=== PATIENT | female | born 1965 | race Caucasian/White ===

== ENCOUNTER 2017-01-09 18:19 | Emergency (ER) | payer OTHER ==
[~2017-01-09] VITALS: Ht 162.6 cm; Wt 70.0 kg
[2017-01-09 18:20] VITALS: BP 139/92; PULSE 93; RESP 16; TEMP 99.2; O2SAT 96
--- NOTE | 2017-01-09 19:02 | PD ---
HPI Chief Complaint: Pain: Acute or Chronic Time Seen by Provider: 18:57 (Yeimy Miranda) Time Seen by Provider: 22:12 (Lidya Garcia) Travel History International Travel<30 days: No Contact w/Intl Traveler<30days: No Traveled to known affect area: No (Yeimy Miranda) International Travel<30 days: No Contact w/Intl Traveler<30days: No (Lidya Garcia) History of Present Illness HPI Patient is a 51-year-old female presenting to emergency department for evaluation of right lower leg pain. Patient states the pain started 3 weeks ago , at that time it was just a dull tingling sensation. Over the last few weeks pain is increased, specifically the pain has gotten worse over the last 24-48 hours. Patient states it feels like it's throbbing and grabbing. She rates her pain a 7 out of 10, she's been taking Tylenol with no relief of her symptoms. Patient denies any chest pain, shortness of breath, nausea, vomiting. She states she feels as if her leg is swollen and tight. Patient has been to another emergency department as well as her primary care provider's office to have this evaluated. Patient had an ultrasound performed in the emergency department 2 weeks ago, she states that she was never told if it was negative or not. (Yeimy Miranda) HPI 51-year-old female presents to the emergency department for evaluation of right leg calf cramping for 3 weeks. Patient states that about 4 weeks ago she was having right sciatic pain and was seen by her PCP and given an injection which improved her sciatic pain. States that 3 days after this she began to have pain in the right calf that was a dull aching pain. States that the pain has progressed over the past 3 weeks and she describes it as a cramping pain. States that the pain is brought on with walking and alleviated with rest. States that she is also having some numbness and tingling in her feet bilaterally. States that her PCP has ordered an outpatient MRI to evaluate her lumbar spine, she is getting this done tomorrow. States she has an appointment with her PCP doctor Wisam later this week to follow up on these results. She denies any fever, chills, nausea, vomiting, weakness, swelling, chest pain, shortness of breath. Denies any medical conditions. Denies smoking history. No other complaints. (Lidya Garcia) [facility] Past Medical History Asthma: Yes Blood Disorders: No Cancer: No Cardiovascular Problems: No Diabetes: No Diminished Hearing: No Endocrine: No Genitourinary: No Immune Disorder: No Musculoskeletal: No Neurologic: Yes (VERTIGO) Reproductive: No Respiratory: Yes Migraines: Yes Influenza Vaccination: No ?: Unknown LMP: 11/29/16 : 3 Para: 2 (Yeimy Miranda) Medical History: Denies Significant Hx (Lidya Garcia) Past Surgical History Other Surgery: No (SURGERY TO LEFT AXILLA) (Yeimy Miranda) Social History Alcohol Use: No Tobacco Use: No Substance Use: No (Yeimy Miranda) Alcohol Use: No Tobacco Use: No Substance Use: No (Lidya Garcia) Allergies-Medications (Allergen,Severity, Reaction): Coded Allergies: Ibuprofen (Verified Allergy, Severe, HIVES/RASH, 01/09/17) Aspirin (Verified Allergy, Mild, RED, 01/09/17) Codeine (Verified Allergy, Mild, HIVES, 01/09/17) Reported Meds & Prescriptions Reported Meds & Active Scripts Active No Active Prescriptions or Reported Medications (Lidya Garcia) Review of Systems Except as stated in HPI: all other systems reviewed are Neg Musculoskeletal: Positive: Myalgias, Edema, Pain (Yeimy Miranda) Except as stated in HPI: all other systems reviewed are Neg (Lidya Garcia) Physical Exam Narrative GENERAL: Well-developed, well-nourished, alert female. Resting comfortably in no acute distress. SKIN: Warm and dry. HEAD: Atraumatic. Normocephalic. EYES: Pupils equal and round. No scleral icterus. No injection or drainage. ENT: No nasal bleeding or discharge. Mucous membranes pink and moist. NECK: Trachea midline. No JVD. CARDIOVASCULAR: Regular rate and rhythm. RESPIRATORY: No accessory muscle use. Clear to auscultation. Breath sounds equal bilaterally. GASTROINTESTINAL: Abdomen soft, non-tender, nondistended. Hepatic and splenic margins not palpable. MUSCULOSKELETAL: Extremities without clubbing, cyanosis, mild edema on the right.. No obvious deformities. Positive Homans sign on the right, patient is neurovascularly intact. NEUROLOGICAL: Awake and alert. No obvious cranial nerve deficits. Motor grossly within normal limits. Five out of 5 muscle strength in the arms and legs. Normal speech. PSYCHIATRIC: Appropriate mood and affect; insight and judgment normal. (Yeimy Miranda) Narrative GENERAL: Well-nourished and well-developed pleasant female patient in no acute distress who is nontoxic appearing. SKIN: Warm and dry. HEAD: Normocephalic and atraumatic. EYES: No injection, drainage, or hyphema noted. PERRLA. EOMI. ENT: No nasal drainage noted. Oropharynx is clear. NECK: Supple and the trachea is midline. CARDIOVASCULAR: Regular rate and rhythm. RESPIRATORY: Breath sounds are equal bilaterally with no accessory muscle use, wheezing, rhonchi, or crackles. MUSCULOSKELETAL: Mild tenderness to palpation of right calf. No obvious deformities, swelling, cyanosis, or ecchymosis is present throughout the upper and lower extremities. Patient has full range of motion without any signs of neurovascular compromise. DP pulses 2+ bilaterally. Capillary refill is within normal limits bilaterally. Lower extremities are warm to touch. NEUROLOGICAL: Awake, alert, and oriented. Normal speech and gait. Cranial nerves are grossly intact. (Lidya Garcia) Data Data Last Documented VS Vital Signs Date Time Temp Pulse Resp B/P Pulse Ox O2 Delivery O2 Flow Rate FiO2 01/09/17 21:43 80 16 104/65 96 Room Air 01/09/17 18:20 99.2 (Lidya Garcia) Orders Comprehensive Metabolic Panel (01/09/17 18:55) Magnesium (Mg) (01/09/17 18:55) Complete Blood Count With Diff (01/09/17 18:55) Act Partial Throm Time (Ptt) (01/09/17 18:55) Prothrombin Time / Inr (Pt) (01/09/17 18:55) Us Leg Venous Doppler (01/09/17 ) (Lidya Garcia) Labs Laboratory Tests Test 01/09/17 19:00 White Blood Count 6.8 TH/MM3 Red Blood Count 4.54 MIL/MM3 Hemoglobin 12.9 GM/DL Hematocrit 38.2 % Mean Corpuscular Volume 84.2 FL Mean Corpuscular Hemoglobin 28.4 PG Mean Corpuscular Hemoglobin 33.7 % Concent Red Cell Distribution Width 13.7 % Platelet Count 246 TH/MM3 Mean Platelet Volume 8.8 FL Neutrophils (%) (Auto) 70.8 % Lymphocytes (%) (Auto) 17.9 % Monocytes (%) (Auto) 7.9 % Eosinophils (%) (Auto) 2.4 % Basophils (%) (Auto) 1.0 % Neutrophils # (Auto) 4.8 TH/MM3 Lymphocytes # (Auto) 1.2 TH/MM3 Monocytes # (Auto) 0.5 TH/MM3 Eosinophils # (Auto) 0.2 TH/MM3 Basophils # (Auto) 0.1 TH/MM3 CBC Comment DIFF FINAL Differential Comment Prothrombin Time 10.9 SEC Prothromb Time International 1.0 RATIO Ratio Activated Partial 26.3 SEC Thromboplast Time Sodium Level 141 MEQ/L Potassium Level 3.9 MEQ/L Chloride Level 105 MEQ/L Carbon Dioxide Level 29.0 MEQ/L Anion Gap 7 MEQ/L Blood Urea Nitrogen 13 MG/DL Creatinine 0.71 MG/DL Estimat Glomerular Filtration 87 ML/MIN Rate Random Glucose 104 MG/DL Calcium Level 8.3 MG/DL Magnesium Level 2.1 MG/DL Total Bilirubin 0.2 MG/DL Aspartate Amino Transf 14 U/L (AST/SGOT) Alanine Aminotransferase 23 U/L (ALT/SGPT) Alkaline Phosphatase 90 U/L Total Protein 7.6 GM/DL Albumin 3.7 GM/DL (Lidya Garcia) [facility] Medical Decision Making Medical Screen Exam Complete: Yes Emergency Medical Condition: Yes Interpretation(s) Vital Signs Date Time Temp Pulse Resp B/P Pulse Ox O2 Delivery O2 Flow Rate FiO2 01/09/17 18:20 99.2 93 16 139/92 96 Differential Diagnosis Thrombophlebitis versus DVT versus muscle spasm versus muscle strain versus other Narrative Course Patient is a 51 year female presenting to the emergency department for evaluation of 3-4 weeks of right lower leg pain that has gotten worse over the last 3 days. Patient's vital signs are stable, she is resting comfortably, spouse at bedside. Ultrasound was negative for DVT. CBC is unremarkable, coags are unremarkable. Chemistry is pending. Care of patient transferred to Geoffrey ALAS at the end of my shift. (Yeimy Miranda) Medical Screen Exam Complete: Yes Emergency Medical Condition: Yes Differential Diagnosis Intermittent claudication versus radiculopathy (Lidya Garcia) Diagnosis Primary Impression: Right leg claudication Referrals: Primary Care Physician 3 days Patient Instructions: General Instructions, Leg Pain (ED) Additional Instructions: Get MARISOL testing done as an outpatient this week. Follow-up with your PCP Dr. Joel within the next week. Return to the ED for any acute worsening of symptoms. Med/Other Pt SpecificInfo: No Change to Meds (Lidya Garcia) Scripts No Active Prescriptions or Reported Meds Disposition: DISCHARGE HOME Condition: Stable Yeimy Miranda Jan 09, 2017 19:02 Lidya Garcia Jan 09, 2017 22:16 Differential Comment Prothrombin Time 10.9 SEC Prothromb Time International 1.0 RATIO Ratio Activated Partial 26.3 SEC Thromboplast Time (Yeimy Miranda) MDM Medical Decision Making Medical Screen Exam Complete: Yes Emergency Medical Condition: Yes Interpretation(s) Vital Signs Date Time Temp Pulse Resp B/P Pulse Ox O2 Delivery O2 Flow Rate FiO2 01/09/17 18:20 99.2 93 16 139/92 96 Differential Diagnosis Thrombophlebitis versus DVT versus muscle spasm versus muscle strain versus other Narrative Course Patient is a 51 year female presenting to the emergency department for evaluation of 3-4 weeks of right lower leg pain that has gotten worse over the last 3 days. Patient's vital signs are stable, she is resting comfortably, spouse at bedside. Ultrasound was negative for DVT. CBC is unremarkable, coags are unremarkable. Chemistry is pending. Care of patient transferred to Geoffrey ALAS at the end of my shift. (Yeimy Miranda) Medical Screen Exam Complete: Yes Emergency Medical Condition: Yes Differential Diagnosis Intermittent claudication versus radiculopathy (Lidya Garcia) Diagnosis Primary Impression: Right leg claudication Referrals: Primary Care Physician 3 days Patient Instructions: General Instructions, Leg Pain (ED) Additional Instructions: Get MARISOL testing done as an outpatient this week. Follow-up with your PCP Dr. Joel within the next week. Return to the ED for any acute worsening of symptoms. Med/Other Pt SpecificInfo: No Change to Meds (Lidya Garcia) Scripts No Active Prescriptions or Reported Meds Disposition: DISCHARGE HOME Condition: Stable Yeimy Miranda Jan 09, 2017 19:02 Lidya Garcia Jan 09, 2017 22:16
[2017-01-09 19:21] LABS: AUTOMATED NEUTROPHIL # 4.8 TH/MM3 (1.8-7.7); BASOPHIL # 0.1 TH/MM3 (0-0.2); EOSINOPHIL # 0.2 TH/MM3 (0-0.4); EOSINOPHIL % 2.4 % (0.0-4.0); HEMATOCRIT 38.2 % (35.0-46.0); HEMO FLAGS DIFF FINAL; LYMPH % 17.9 % (9.0-44.0); LYMPHOCYTE # 1.2 TH/MM3 (1.0-4.8); MEAN CELL VOLUME 84.2 FL (80.0-100.0); MEAN CORPUSCULAR HEMOGLOBIN 28.4 PG (27.0-34.0); MEAN CORPUSCULAR HGB CONC 33.7 % (32.0-36.0); MONO % 7.9 % (0.0-8.0); NEUT % 70.8 % (16.0-70.0); PLATELET COUNT 246 TH/MM3 (150-450); RED BLOOD COUNT 4.54 MIL/MM3 (4.00-5.30); RED CELL DISTRIBUTION WIDTH 13.7 % (11.6-17.2); WHITE BLOOD COUNT 6.8 TH/MM3 (4.0-11.0)
[2017-01-09 19:44] LABS: APTT (PATIENT) 26.3 SEC (24.3-30.1); PROTHROMBIN TIME - PATIENT 10.9 SEC (9.8-11.6)
--- NOTE | 2017-01-09 20:19 | RADRPT ---
EXAM DATE/TIME: 01/09/2017 19:50 [place] COMPARISON: No previous studies available for comparison. INDICATIONS : Right leg pain. MEDICAL HISTORY : Vertigo. Migraine. Ashtma. Right leg pain for one week. SURGICAL HISTORY : Breast surgery. Surgery to left axilla. ENCOUNTER: Initial ACUITY: 1 week PAIN SCORE: 6/10 LOCATION: Right leg. TECHNIQUE: Venous ultrasound of the leg was performed from the inguinal ligament to the proximal calf. Real-ning e, color Doppler and spectral tracing, compression and augmentation techniques were used. FINDINGS: There is normal compressibility of the deep venous system from the inguinal region to the proximal ca lf. No echogenic clot is seen in the lumen of the common femoral, femoral, popliteal, and posterior tibial veins. There is a normal response of the venous system to proximal and distal augmentation an d respiration. CONCLUSION: No DVT right lower extremity. Paulo Ireland MD on January 09, 2017 at 20:17 Board Certified Radiologist. This report was verified electronically.
[2017-01-09 21:31] LABS: ALT (GPT) 23 U/L (10-53); ANION GAP 7 MEQ/L (5-15); AST (GOT) 14 U/L (15-37); BLOOD UREA NITROGEN 13 MG/DL (7-18); CHLORIDE 105 MEQ/L (98-107); GLOMERULAR FILTRATION RATE 87 ML/MIN (>89); MAGNESIUM 2.1 MG/DL (1.5-2.5); POTASSIUM 3.9 MEQ/L (3.5-5.1); SODIUM (NA) 141 MEQ/L (136-145)
[2017-01-09 21:33] LABS: ALKALINE PHOSPHATASE 90 U/L (45-117); TOTAL BILIRUBIN ADULT 0.2 MG/DL (0.2-1.0)
[2017-01-09 21:43] VITALS: BP 104/65; PULSE 80; RESP 16; O2SAT 96
--- NOTE | 2017-01-09 22:40 | PD ---
Physical Exam Time Seen by Provider: 22:38 Narrative 51-year-old female presents to the emergency department for evaluation of right leg calf cramping for 3 weeks. Patient seen by provider in triage where initial workup was begun, please see her documentation. Patient states that about 4 weeks ago she was having right sciatic pain and was seen by her PCP and given an injection which improved her sciatic pain. States that 3 days after this she began to have pain in the right calf that was a dull aching pain. States that the pain has progressed over the past 3 weeks and she describes it as a cramping pain. States that the pain is brought on with walking and alleviated with rest. States that she is also having some numbness and tingling in her feet bilaterally. States that her PCP has ordered an outpatient MRI to evaluate her lumbar spine, she is getting this done tomorrow. States she has an appointment with her PCP doctor Wisam later this week to follow up on these results. She denies any fever, chills, nausea, vomiting, weakness, swelling, chest pain, shortness of breath. Denies any medical conditions. Denies smoking history. No other complaints. GENERAL: Well-nourished and well-developed pleasant female patient in no acute distress who is nontoxic appearing. SKIN: Warm and dry. HEAD: Normocephalic and atraumatic. EYES: No injection, drainage, or hyphema noted. PERRLA. EOMI. ENT: No nasal drainage noted. Oropharynx is clear. NECK: Supple and the trachea is midline. CARDIOVASCULAR: Regular rate and rhythm. RESPIRATORY: Breath sounds are equal bilaterally with no accessory muscle use, wheezing, rhonchi, or crackles. MUSCULOSKELETAL: Mild tenderness to palpation of right calf. No obvious deformities, swelling, cyanosis, or ecchymosis is present throughout the upper and lower extremities. Patient has full range of motion without any signs of neurovascular compromise. DP pulses 2+ bilaterally. Capillary refill is within normal limits bilaterally. Lower extremities are warm to touch. NEUROLOGICAL: Awake, alert, and oriented. Normal speech and gait. Cranial nerves are grossly intact. Data Data Last Documented VS Vital Signs Date Time Temp Pulse Resp B/P Pulse Ox O2 Delivery O2 Flow Rate FiO2 01/09/17 21:43 80 16 104/65 96 Room Air 01/09/17 18:20 99.2 Orders Comprehensive Metabolic Panel (01/09/17 18:55) Magnesium (Mg) (01/09/17 18:55) Complete Blood Count With Diff (01/09/17 18:55) Act Partial Throm Time (Ptt) (01/09/17 18:55) Prothrombin Time / Inr (Pt) (01/09/17 18:55) Us Leg Venous Doppler (01/09/17 ) Labs Laboratory Tests Test 01/09/17 19:00 White Blood Count 6.8 TH/MM3 Red Blood Count 4.54 MIL/MM3 Hemoglobin 12.9 GM/DL Hematocrit 38.2 % Mean Corpuscular Volume 84.2 FL Mean Corpuscular Hemoglobin 28.4 PG Mean Corpuscular Hemoglobin 33.7 % Concent Red Cell Distribution Width 13.7 % Platelet Count 246 TH/MM3 Mean Platelet Volume 8.8 FL Neutrophils (%) (Auto) 70.8 % Lymphocytes (%) (Auto) 17.9 % Monocytes (%) (Auto) 7.9 % Eosinophils (%) (Auto) 2.4 % Basophils (%) (Auto) 1.0 % Neutrophils # (Auto) 4.8 TH/MM3 Lymphocytes # (Auto) 1.2 TH/MM3 Monocytes # (Auto) 0.5 TH/MM3 Eosinophils # (Auto) 0.2 TH/MM3 Basophils # (Auto) 0.1 TH/MM3 CBC Comment DIFF FINAL Differential Comment Prothrombin Time 10.9 SEC Prothromb Time International 1.0 RATIO Ratio Activated Partial 26.3 SEC Thromboplast Time Sodium Level 141 MEQ/L Potassium Level 3.9 MEQ/L Chloride Level 105 MEQ/L Carbon Dioxide Level 29.0 MEQ/L Anion Gap 7 MEQ/L Blood Urea Nitrogen 13 MG/DL Creatinine 0.71 MG/DL Estimat Glomerular Filtration 87 ML/MIN Rate Random Glucose 104 MG/DL Calcium Level 8.3 MG/DL Magnesium Level 2.1 MG/DL Total Bilirubin 0.2 MG/DL Aspartate Amino Transf 14 U/L (AST/SGOT) Alanine Aminotransferase 23 U/L (ALT/SGPT) Alkaline Phosphatase 90 U/L Total Protein 7.6 GM/DL Albumin 3.7 GM/DL [facility] Supervised Visit with DANIEL: No Differential Diagnosis Intermittent claudication versus radiculopathy versus DVT versus electrolyte abnormality Narrative Course 51-year-old female presents to the emergency department for evaluation of right leg pain. Patient was initially seen by provider in triage, please see her documentation. Patient is afebrile, vital signs are stable. Physical examination is unremarkable. The right lower extremity is neurovascularly intact. There is no evidence of acute ischemia or arterial occlusion. Her pulses are palpable and capillary refill is within normal limits. Labs and ultrasound were ordered by provider in triage. CBC is unremarkable. CMP is unremarkable. Coags are unremarkable. Ultrasound is negative for DVT. I discussed all findings with the patient. I am concerned that her symptoms could be intermittent claudication due to the fact that she is having pain with walking in the right calf and experiencing some paresthesias. Although her paresthesias are bilateral and could be related to radiculopathy. She has an MRI to assess for this tomorrow as an outpatient. She doesn't have any signs or symptoms of acute ischemia or occlusion and therefore I don't feel that she needs a CTA with runoff at this time. I will order outpatient ABIs for her to have done this week so she can then follow up on the results with her PCP Dr. Joel. Discussed signs and symptoms and when to return to the emergency department. Patient verbalizes understanding and is in agreement with treatment plan. I discussed the case with my attending physician Dr. Henson who is aware of the patients history, physical examination findings, and treatment plan. Diagnosis Primary Impression: Right leg claudication Referrals: Primary Care Physician 3 days Patient Instructions: General Instructions, Leg Pain (ED) Departure Forms: Tests/Procedures Additional Instruction: Get MARISOL testing done as an outpatient this week. Follow-up with your PCP Dr. Joel within the next week. Return to the ED for any acute worsening of symptoms. Scripts No Active Prescriptions or Reported Meds Disposition: 01 DISCHARGE HOME Condition: Stable Lidya Garcia Jan 09, 2017 22:40
== END 2017-01-09 22:35 | disposition home or self-care (01) ==
LOC: NETRI 18:19 → NEPE 22:35
DX: I73.9 Peripheral vascular disease, unspecified (principal); R25.2 Cramp and spasm; M79.89 Other specified soft tissue disorders; J45.909 Unspecified asthma, uncomplicated
CPT/HCPCS: 80053; 83735; 85025; 85610; 85730; 93971